=== PATIENT | male | born 1990 | race Hispanic/Latino ===

== ENCOUNTER 2021-03-06 00:24 | Emergency (ER) | payer BC, SELFPAY ==
[2021-03-06] MEDS ORDERED: Ondansetron PF 4 MG/2 ML Vial ONE ×2 (00:29→00:34)
[2021-03-06 01:01] LABS: #Basophils 0.1 thou/uL (0.0-0.2); #Eosinphils 0.1 thou/uL (0.0-0.7); #Monocytes 0.7 thou/uL (0.11-0.59); #Neutrophils 6.1 thou/uL (1.40-6.50); %Basophils 0.5 % (0.0-1.0); %Lymphocytes 30.5 % (21.0-51.0); %Monocytes 6.5 % (0.0-10.0); %Neutrophils 61.5 % (42.0-75.0); Hemoglobin 14.3 g/dL (14.0-18.0); Mean Corpuscular HGB CONC 34.8 g/dL (32.0-36.0); Mean Corpuscular Hemoglobin 32.3 pg (27.0-31.0); Mean Platelet Volume 7.6 fL (7.4-10.4); Platelet Count 267 thou/uL (130-400); RBC Distribution Width 11.6 % (11.5-14.5); Red Blood Cell (RBC) Count 4.41 mill/uL (4.70-6.10)
[2021-03-06 01:11] LABS: ALT (SGPT) 34 U/L (8-55); AST (SGOT) 31 U/L (5-34); Albumin 3.9 g/dL (3.5-5.0); Alcohol 244 mg/dL (Less than 10); Alkaline Phosphatase 75 U/L (40-110); Anion Gap 14 mmol/L (10-20); BUN (Urea Nitrogen) 6 mg/dL (8.9-20.6); Bilirubin, Total 0.4 mg/dL (0.2-1.2); Calc. Creatinine Clearance 0 mL/min (70-130); Calcium 8.8 mg/dL (7.8-10.44); Carbon Dioxide 20 mmol/L (22-29); Chloride 108 mmol/L (98-107); Globulin 3.1 g/dL (2.4-3.5); Glucose 107 mg/dL (70-105); Lipase 17 U/L (8-78); Potassium 3.1 mmol/L (3.5-5.1); Sodium 139 mmol/L (136-145)
== END 2021-03-06 01:32 | disposition home or self-care (01) ==
LOC: ERS 00:24
DX: S09.90XA Unspecified injury of head, initial encounter (principal); F10.129 Alcohol abuse with intoxication, unspecified; W18.39XA Other fall on same level, initial encounter
CPT/HCPCS: 70450; 71045; 72125; 80053; 80307; 83690; 85025; 93005; 96374; G0390; J2405